=== PATIENT | male | born 1960 | race Caucasian/White ===

== ENCOUNTER 2020-06-11 15:00 | Emergency (ER) | payer BC ==
[2020-06-11 15:30] VITALS: TEMP 98.6; BMI 22.2
[2020-06-11] MEDS ORDERED: CASIRIVIMAB (REGN10933) 1,200 MG, IMDEVIMAB (REGN10987) 1,200 MG in SODIUM CHLORIDE 250 ML IVPB ONE (15:49)
[2020-06-11 18:15] VITALS: BP 128/71; PULSE 74
== END 2020-06-11 21:33 | disposition home or self-care (01) ==
LOC: JER 15:00
DX: U07.1 COVID-19 (principal)
CPT/HCPCS: 99284-25; M0243; Q0243